=== PATIENT | female | born 1945 | race Caucasian/White ===

== ENCOUNTER 2018-05-17 11:52 | Outpatient (CLI) | payer OTHER | END 2018-05-17 12:09 | disposition short-term general hospital (02) | LOC: AMBL 11:52 | PROVIDERS: ATTEND Internal Medicine | DX: R07.9 Chest pain, unspecified (principal); N18.9 Chronic kidney disease, unspecified; Z99.2 Dependence on renal dialysis; R53.1 Weakness; I48.91 Unspecified atrial fibrillation; Z95.1 Presence of aortocoronary bypass graft ==

== ENCOUNTER 2018-06-04 10:55 | Outpatient (CLI) | payer OTHER ==
--- NOTE | 2018-06-09 08:41 | MAMMO ---
EXAM: Bilateral digital screening mammogram (3-D and 2-D) History: Screening Comparison: Bilateral mammogram 03/12/2016 Findings: MLO and CC views of bilateral breasts demonstrate predominately fatty replaced breast pare nchyma. CAD was reviewed by the radiologist. Tomosynthesis was performed. Stable benign bilateral scattered and vascular calcifications. There are no dominant masses, no suspicious microcalcificatio ns and no architectural distortions Impression: Benign stable mammogram. Recommend followup routine screening mammography in 1 year. BIRADS 2, benign
== END 2018-06-04 10:56 | disposition home or self-care (01) ==
LOC: RAD 10:55
PROVIDERS: ATTEND Family Medicine
DX: Z12.31 Encounter for screening mammogram for malignant neoplasm of breast (principal)

== ENCOUNTER 2018-08-13 12:05 | Emergency (ER) | payer OTHER ==
[2018-08-13 12:10] VITALS: BP 164/81; TEMP 98.4; BMI 45.9
--- NOTE | 2018-08-13 14:32 | US ---
EXAM: Bilateral lower extremity venous Doppler History: Bilateral lower extremity pain and swelling. Technique: Multiple sonographic images through the bilateral lower extremities were obtained. Color duplex Doppler was used to interrogate vascular flow. Findings: The bilateral common femoral, greater saphenous, profunda, superficial femoral, popliteal, peroneal and posterior tibial veins demonstrate spontaneous flow with normal compression and normal augmentation. The bilateral anterior tibial veins were not well seen. 5.3 cm x 1.5 cm x 3.0 cm righ t Ingram's cyst. Impression: 1. No sonographic evidence for deep venous thrombosis. 2. Right Ingram's cyst
--- NOTE | 2018-08-13 14:57 | CT ---
EXAM: CT of the chest without contrast History: Cough, pain of the left lower thorax. Comparison: CT thoracic spine and CT lumbar spine 08/13/2018 Technique: Multiplanar CT images through the thorax were obtained without the administration of IV c ontrast Findings: Heart size is normal. Aortic valve replacement. Coronary calcifications. Sternotomy wir es. No thoracic aortic aneurysm. No axillary lymphadenopathy. No pathologically enlarged mediastin al lymph nodes. Evaluation for hilar lymph nodes is limited due to the lack of contrast administrati on but no bulky hilar adenopathy is seen. No consolidation. No pleural fluid and no pneumothorax. No suspicious lung masses or lung nodules. Elevated right hemidiaphragm. Within the visualized upper abdomen, no acute findings. No acute osse ous abnormalities. Partially visualized postsurgical changes of the cervical spine. Impression: 1. No acute intrathoracic process. 2. Elevated right hemidiaphragm
--- NOTE | 2018-08-13 14:59 | CT ---
EXAM: CT of the thoracic spine without contrast History: Thoracic back pain. Comparison: Lumbar spine CT 08/13/2018 Technique: Multiplanar CT images through the thoracic spine were obtained without the administration of IV contrast Findings: The visualized lungs are clear. Atherosclerotic vascular calcifications. Partially visua lized cyst of the left kidney. No acute fracture or subluxation of the thoracic spine. Partially visualized postsurgical changes of the cervical spine. Mild to moderate multilevel disc space narrowing with endplate sclerosis and a few small osteophytes. Bony spinal canal is not compromised. Impression: No acute osseous abnormality of the thoracic spine. Mild to moderate degenerative disc disease
--- NOTE | 2018-08-13 15:03 | CT ---
EXAM: CT LUMBAR SPINE HISTORY: Back pain TECHNIQUE: CT lumbar spine without contrast. 3-mm axial sections. Coronal and sagittal reformation s. COMPARISON: None FINDINGS: A combination of morbid obesity, motion artifact and generalized demineralization limits this evaluat ion. The heterogeneous density of the bones is likely related to osteoporosis, less likely other pat hologic process. There is no acute fracture obvious. No overall significant loss of vertebral body height. There are moderate to severe diffuse degenerative disc and facet changes most apparent at L4 /L5 at which level there is the suggestion of severe central canal stenosis and bilateral neural fora carmelo narrowing. Sacroiliac joints are intact. There is no paraspinal fluid collection. Incidental findings include colonic diverticulosis, atherosclerosis and renal cortical cysts. IMPRESSION: 1. Limited exam reveals generalized demineralization and degenerative changes of the spine with the latter most apparent at L4/L5. No acute fracture is identified.
--- NOTE | 2018-08-13 16:17 | ED.PDOC ---
General ED Provider: Dr. LEN THORNE Chief Complaint: Back Pain Stated Complaint: low, mid back pain Time Seen by Physician: 12:00 Mode of Arrival: Walk-In Information Source: Patient Exam Limitations: No limitations Primary Care Provider: FRANCISCO MCGOVERN Nursing and Triage Documentation Reviewed and Agree: Yes Does patient meet sepsis criteria?: No If yes, has appropriate treatment been initiated?: No System Inflammatory Response Syndrome: Not Applicable Sepsis Protocol: For patient's 13 years and over: Temp is 96.8 and below OR 101 and greater Pulse >90 BPM Resp >20/minute Acutely Altered Mental Status Are patient's symptoms suggestive of a new infection, such as: -Pneumonia -Skin, Soft Tissue -Endocarditis -UTI -Bone, Joint Infection -Implantable Device -Acute Abdominal Infection -Wound Infection -Meningitis -Blood Stream Catheter Infection -Unknown Miscellaneous Complaint Exam - Complex/Multi-System Complaint/Exam Onset/Duration: back pain PMD WOULD LIKE TO R/O P.E. Symptoms Are: Still present Episodes Lasting: Days Initial Severity: Moderate Current Severity: Mild Location of Pain: LOW TO MID BACK Associated Signs and Symptoms: Reports: Weakness, Cough. Denies: Decreased responsiveness, Confusion, Agitation, Dizziness, Syncope, Headache, Short of air , Wheezing, Hemoptysis, Chest pain, Palpitations, Edema, Nausea, Vomiting, Diarrhea, Abdominal pain, Back pain, Dysuria, Hematemesis, Melena, Decreased oral intake, Fever, Diaphoresis, Immunocompromised, Anticoagulation Therapy, Recent medication changes, Indwelling front office medical assistant, Prior MRSA, Prior VRE, Recent trauma, Remote trauma Recent Echo/LV Function: No Respiratory Distress: None JVD Present: No Tachypnea Present: No Stridor Present: No Abdominal Findings: Present: Normal findings Glascow Coma Scale (see protocol): 15 Meningeal Signs Positive: No Focal Weakness: Present: None Focal Sensory Loss: Present: None Gait: Normal Gag Reflex Present: Yes Babinski Sign: Negative Right, Negative Left Joint Swelling Present: No In-Dwelling Device Present: No Differential Diagnosis: Metabolic Abnormality, Other Quality Indicators for Cardiac Chest Pain: EKG in 10min. Quality Indicators for AMI: EKG in 10min. Quality Indicator For Non-Traumatic Chest Pain/Syncope: EKG Performed Review of Systems - Review Of Systems Constitutional: Reports: Malaise, Weakness Eyes: Reports: No symptoms Ears, Nose, Mouth, Throat: Reports: No symptoms Respiratory: Reports: Cough Cardiac: Reports: No symptoms GI: Reports: No symptoms : Reports: No symptoms Musculoskeletal: Reports: Back pain Skin: Reports: No symptoms Neurological: Reports: No symptoms Endocrine: Reports: No symptoms Hematologic/Lymphatic: Reports: No symptoms All Other Systems: Reviewed and Negative Past Medical History - Past Medical History Previously Healthy: Yes Endocrine: Reports: DM 2, Dyslipidemia Cardiovascular: Reports: Hypertension Respiratory: Reports: COPD Hematological: Reports: None Gastrointestinal: Reports: None Genitourinary: Reports: CKD Neuro/Psych: Reports: None Musculoskeletal: Reports: None Cancer: Reports: None Last Menstrual Period: N/A - Surgical History General Surgical History: Reports: None - Family History Family History: Reports: None - Social History Smoking Status: Never smoker Hx Substance Use: No Alcohol Screening: None - Immunizations Tetanus Shot up to Date: Yes Physical Exam - Physical Exam Appearance: Well-appearing, No pain distress, Well-nourished Eyes: JASSON, EOMI, Conjunctiva clear ENT: Ears normal, Nose normal, Oropharynx normal Respiratory: Airway patent, Breath sounds clear, Breath sounds equal, Respirations nonlabored Cardiovascular: RRR, Pulses normal, No rub, No murmur GI/: Soft, Nontender, No masses, Bowel sounds normal, No Organomegaly Musculoskeletal: Normal strength, ROM intact, No edema, No calf tenderness Skin: Warm, Dry, Normal color Neurological: Sensation intact, Motor intact, Reflexes intact, Cranial nerves intact, Alert, Oriented Psychiatric: Affect appropriate, Mood appropriate Interpretation - Radiology Interpretation Radiology Interpretation By: Radiologist Radiology Results: No acute changes Exam Interpreted: CT Scan Re-Evaluation - Re-Evaluation Time of Re-Evaluation: 14:00 Status: Improved Vital Signs Stable: Yes Pain Level: 0 Appearance: NAD Lungs: Clear Skin: Warm and Dry Neuro: Alert and Oriented X3 CV: RRR - Re-Evaluation Time of Re-Evaluation: 16:18 Status: Improved Vital Signs Stable: Yes Pain Level: 0 Appearance: NAD Skin: Warm and Dry Neuro: Alert and Oriented X3 CV: RRR Physician Notification - Case Discussed Physician Notified: PMD Time of Notification: 16:18 (IN ED TALKING TO PT) Critical Care Note - Critical Care Note Total Time (mins): 0 Course - Course Hematology/Chemistry: 08/13/18 13:30 04/12/19 13:25 Orders, Labs, Meds: Lab Review 08/13/18 08/13/18 08/13/18 12:56 13:25 13:30 WBC 7.22 RBC 3.25 L Hgb 10.5 L Hct 32.2 L MCV 99.1 H MCH 32.3 H MCHC 32.6 RDW Coeff of Evelyne 14.6 Plt Count 176 Immature Gran % (Auto) 0.6 Neut % (Auto) 64.9 Lymph % (Auto) 25.6 [place] % (Auto) 6.1 Eos % (Auto) 2.5 Baso % (Auto) 0.3 Immature Gran # (Auto) 0.0 Neut # (Auto) 4.7 Lymph # (Auto) 1.9 [place] # (Auto) 0.4 Eos # (Auto) 0.2 Baso # (Auto) 0.0 PT INR APTT D-Dimer (Manual) Puncture Site Rbrach O2 Saturation 97.0 ABG pH 7.593 H* ABG pCO2 33.8 L ABG pO2 75.0 L ABG HCO3 32.6 H ABG Total CO2 34 H ABG Base Excess 11 H FiO2 % 21.0 Sodium 132.4 L Potassium 3.25 L Chloride 90.9 L Carbon Dioxide 32.6 H Anion Gap 12.15 BUN 18.9 H Creatinine 2.66 H Estimated GFR (MDRD) 18.00 BUN/Creatinine Ratio 7.10 Glucose 195.3 H Calcium 8.77 Total Bilirubin 0.66 AST 24.3 ALT 10.8 Alkaline Phosphatase 103.1 Total Creatine Kinase 33.9 Troponin I 0.021 Total Protein 7.44 Albumin 4.29 Globulin 3.15 Albumin/Globulin Ratio 1.36 Blood Type 08/13/18 08/13/18 08/13/18 13:30 13:30 13:35 WBC RBC Hgb Hct MCV MCH MCHC RDW Coeff of Evelyne Plt Count Immature Gran % (Auto) Neut % (Auto) Lymph % (Auto) [place] % (Auto) Eos % (Auto) Baso % (Auto) Immature Gran # (Auto) Neut # (Auto) Lymph # (Auto) [place] # (Auto) Eos # (Auto) Baso # (Auto) PT 11.0 INR 1.10 APTT 29.5 D-Dimer (Manual) 1006.64 Puncture Site O2 Saturation ABG pH ABG pCO2 ABG pO2 ABG HCO3 ABG Total CO2 ABG Base Excess FiO2 % Sodium Potassium Chloride Carbon Dioxide Anion Gap BUN Creatinine Estimated GFR (MDRD) BUN/Creatinine Ratio Glucose Calcium Total Bilirubin AST ALT Alkaline Phosphatase Total Creatine Kinase Troponin I Total Protein Albumin Globulin Albumin/Globulin Ratio Blood Type O POSITIVE Orders Category Date Time Status ABG DRAW REQUEST Stat CARDIO 08/13/18 12:56 Completed EKG-(ED ONLY) Stat CARDIO 08/13/18 12:47 Completed ED IV/MEDIPORT/POWERPORT .ONCE EMERGENCY 08/13/18 12:54 Active ABG Stat LAB 08/13/18 12:56 Completed CBC W/ AUTO DIFF Stat LAB 08/13/18 13:30 Completed COMPREHENSIVE METABOLIC PANEL Stat LAB 08/13/18 13:25 Completed CREATINE KINASE Stat LAB 08/13/18 13:25 Completed D-DIMER Stat LAB 08/13/18 13:30 Completed PARTIAL THROMBOPLASTIN TIME Stat LAB 08/13/18 13:30 Completed PT WITH INR Stat LAB 08/13/18 13:30 Completed TROPONIN I Stat LAB 08/13/18 13:25 Completed 0.9 % Sodium Chloride [Saline Flush] MEDS 08/13/18 12:54 Active 1 syr IVF PRN PRN CT CHEST W/O CONTRAST Stat RADS 08/13/18 12:[address] LUMBAR SPINE W/O CONTRAST Stat RADS 08/13/18 12:[address] THORACIC SPINE W/O CONTRAST Stat RADS 08/13/18 12:56 Completed U/S VENOUS SCAN PALLAVI LEGS Stat RADS 08/13/18 12:55 Completed Medications Generic Name Dose Route Start Last Admin Trade Name Freq PRN Reason Stop Dose Admin Sodium Chloride 1 syr 08/13/18 12:54 Saline Flush IVF PRN PRN To flush IV Vital Signs: Temp Pulse Resp BP Pulse Ox 08/13/18 12:05 98.4 F 67 16 164/81 H 100 Departure - Departure Time of Disposition: 16:18 Disposition: HOME SELF-CARE Discharge Problem: Backache, Renal failure Condition: Good Pt referred to PMD for follow-up: Yes IPMP verified?: No Additional Instructions: Please call your Family Physician as soon as possible to schedule a follow-up appointment. Allergies/Adverse Reactions: Allergies avocado Adverse Reaction (Severe, Verified 08/13/18 12:10) Anaphylaxis Home Medications: Ambulatory Orders Allopurinol 300 mg PO DAILY 08/13/18 Apixaban [Eliquis] 5 mg PO BID 08/13/18 Aspirin 81 mg PO DAILY 08/13/18 Bumetanide [Bumex] 2 mg PO DAILY 08/13/18 Calcium Carbonate/Simethicone [Saranya-Shock Heartburn+Gas] 1 each PO TID Carvedilol [Coreg] 6.25 mg PO BIDWM 08/13/18 Ergocalciferol (Vitamin D2) [Vitamin D2] 50,000 unit PO MONTHLY 08/13/18 Insulin Regular, Human [Humulin R] 15 unit SUBCUT ONCE 08/13/18 Iron Fum/Docusat/Folic/Bcomp,C [Nephron FA Tablet] 1 tab PO DAILY 08/13/18 Montelukast Sodium [Singulair] 10 mg PO ONCE 08/13/18 NPH, Human Insulin Isophane [Humulin N] 30 unit SQ QAM 08/13/18 Pravastatin Sodium [Pravachol] 80 mg PO DAILY 08/13/18
== END 2018-08-13 16:37 | disposition home or self-care (01) ==
LOC: ED 12:05
DX: M54.5 Low back pain (principal); M54.6 Pain in thoracic spine; N19 Unspecified kidney failure; R53.1 Weakness; N18.9 Chronic kidney disease, unspecified; R05 Cough; E11.9 Type 2 diabetes mellitus without complications; E78.5 Hyperlipidemia, unspecified; I10 Essential (primary) hypertension; J44.9 Chronic obstructive pulmonary disease, unspecified; Z79.899 Other long term (current) drug therapy
CPT/HCPCS: 36415; 80053; 82550; 82803; 84484; 85025; 85379; 85610; 85730; 93005; 93010; 99284

== ENCOUNTER 2018-08-13 16:45 | Outpatient (CLI) ==
[2018-08-13 12:10] VITALS: BMI 45.9
== END 2018-08-13 17:09 | disposition short-term general hospital (02) ==
LOC: AMBL 16:45
PROVIDERS: ATTEND Internal Medicine
DX: R07.9 Chest pain, unspecified (principal); M25.512 Pain in left shoulder; R03.1 Nonspecific low blood-pressure reading; M54.6 Pain in thoracic spine; N19 Unspecified kidney failure; Z99.2 Dependence on renal dialysis